=== PATIENT | female | born 2000 | race Hispanic/Latino ===

== ENCOUNTER 2023-02-13 19:35 | Emergency (ER) | payer OTHER ==
[~2023-02-13] VITALS: Ht 144.8 cm; Wt 46.7 kg
[2023-02-13 20:25] LABS: APPEARANCE,URINE TURBID (CLEAR); BILIRUBIN,URINE NEGATIVE (NEGATIVE); COLOR,URINE YELLOW (YELLOW); GLUCOSE, URINE (UA) NEGATIVE (NEGATIVE); KETONES,URINE NEGATIVE (NEGATIVE); LEUKOCYTE ESTERASE ,URINE 500 Leu/uL (NEGATIVE); NITRATE,URINE NEGATIVE (NEGATIVE); OCCULT BLOOD,URINE LARGE (NEGATIVE); PH,URINE 6.5 (5.0-8.0); PROTEIN,URINE 70 mg/dL (NEGATIVE); UROBILINOGEN,URINE 0.2 mg/dL (0.2-1.0)
[2023-02-13] MEDS ORDERED: SULFAMETHOX-TMP DS 800/160 TAB PO SCH (20:30)
[2023-02-13] MEDS ORDERED: PHENAZOPYRIDINE HCL 200 MG TABLET PO ONE (20:30)
[2023-02-13 20:36] LABS: BACTERIA,URINE FEW /HPF (None Seen); RBC,URINE 51-100 /HPF (0-1); SQUAMOUS EPITHELIAL CELL,UR RARE /HPF (0-2); WBC,URINE TNTC /HPF (0-1); YEAST,URINE BUDDING FEW /HPF (None Seen)
[2023-02-13 20:44] LABS: HCG,QUALITATIVE URINE NEGATIVE (NEGATIVE)
[2023-02-13] MEDS ORDERED: SULF1TAB42 PO (20:50)
[2023-02-13] MEDS ORDERED: PHEN-847 PO (20:50)
[2023-02-13 21:03] VITALS: BP 107/57
== END 2023-02-13 21:04 | disposition home or self-care (01) ==
LOC: EDH 19:35
DX: N30.00 Acute cystitis without hematuria (principal); R30.0 Dysuria
CPT/HCPCS: 81001; 81025; 87077; 87088; 87186